=== PATIENT | female | born 2000 | race Two or more races ===

== ENCOUNTER 2023-04-28 19:54 | Emergency (ER) | payer OTHER ==
[2023-04-28] MEDS ORDERED: Prochlorperazine 10 MG/2 ML VIAL ONE (20:26)
[2023-04-28] MEDS ORDERED: Lorazepam 2 MG/ML VIAL ONE (20:39)
[2023-04-28 21:02] LABS: BHCG - Serum Negative (NEGATIVE); Pregs Control Background? CLEAR/WHITE (CLR/WHITE); Pregs Control Bar Appear? YES (CONTROL BAR)
[2023-04-28 21:07] LABS: Acetaminophen Less than 10 mcg/mL (10.0-30.0); Alcohol Less than 10.0 mg/dL (Less than 10); Salicylate Less than 8.0 mg/dL (15.0-30.0)
[2023-04-28 21:16] LABS: ALT (SGPT) 9 U/L (8-55); AST (SGOT) 16 U/L (5-34); Albumin 4.6 g/dL (3.5-5.0); Alkaline Phosphatase 61 U/L (40-110); Anion Gap 19 mmol/L (10-20); BUN (Urea Nitrogen) 12 mg/dL (7.0-18.7); Bilirubin, Total 0.3 mg/dL (0.2-1.2); Calc. Creatinine Clearance 0 mL/min (70-130); Calcium 9.8 mg/dL (7.8-10.44); Carbon Dioxide 17 mmol/L (22-29); Chloride 108 mmol/L (98-107); Estimated GFR 86; Globulin 3.8 g/dL (2.4-3.5); Glucose 94 mg/dL (70-105); Potassium 3.3 mmol/L (3.5-5.1); Protein, Total 8.4 g/dL (6.0-8.3); Sodium 141 mmol/L (136-145)
[2023-04-28 21:22] LABS: Amphetamine Not Detected (NotDetected); Barbiturates Screen Not Detected (NotDetected); Benzodiazepine Screen Not Detected (NotDetected); Cocaine Metabolite Screen Not Detected (NotDetected); Methadone Not Detected (NotDetected); Methamphetamine Not Detected (NotDetected); Opiate Screen Not Detected (NotDetected); Oxycodone Screen Not Detected (NotDetected); Phencyclidine (PCP) Not Detected (NotDetected); THC/Cannabinoid Screen Detected (NotDetected); Tricyclic Screen Not Detected (NotDetected)
[2023-04-28 21:24] LABS: #Basophils 0.1 10x3/uL (0.0-0.2); #Eosinphils 0.1 10x3/uL (0.0-0.5); #Monocytes 0.8 10x3/uL (0.0-1.1); %Basophils 0.4 % (0.0-2.0); %Eosinophils 0.5 % (0.0-6.0); %Lymphocytes 18.5 % (18.0-47.0); %Neutrophils 74.2 % (40.0-75.0); Hematocrit 40.9 % (34.9-44.5); Hemoglobin 13.6 g/dL (12.0-15.5); Mean Corpuscular HGB CONC 33.3 g/dL (32.0-36.0); Mean Corpuscular Hemoglobin 28.9 pg (27.0-33.0); Mean Corpuscular Volume 86.8 fl (81.6-98.3); Mean Platelet Volume 10.7 fl (7.4-10.4); Platelet Count 282 10x3/uL (150-450); RBC Distribution Width 13.2 % (11.5-14.5); Red Blood Cell (RBC) Count 4.71 10x6/uL (3.90-5.03); White Blood Cell (WBC) Count 13.5 10x3/uL (3.5-10.5)
[2023-04-28] MEDS ORDERED: Ziprasidone 20 MG VIAL ONE (23:53)
[2023-04-28] MEDS ORDERED: Sterile Water 10 ML ONE (23:54)
[2023-04-29] MEDS ORDERED: Ziprasidone 20 MG VIAL ONE (00:12)
[2023-04-29] MEDS ORDERED: Sterile Water 10 ML ONE (00:12)
[2023-04-29] MEDS ORDERED: Ondansetron ODT 4 MG TAB ONE (03:05)
== END 2023-04-29 12:20 ==
LOC: CSHERS 19:54
DX: R45.851 Suicidal ideations (principal)
CPT/HCPCS: 36415; 80053; 80306; 80307; 84703; 85025; 96372; 96374; J0780; J2060; J3486; Q0162

== ENCOUNTER 2024-04-17 13:59 | Emergency (ER) | payer OTHER ==
[2024-04-17] MEDS ORDERED: Ketorolac Tromethamine 30 MG (1 mL) VIAL ONE (14:56)
[2024-04-17] MEDS ORDERED: predniSONE 20 MG TAB ONE (15:11)
[2024-04-17 15:38] LABS: Bilirubin Neg (Negative); Blood, Urine 25 (Negative); Glucose, Urine (Dipstick) Normal (Negative); Ketone, Urine 5 mg/dL (Negative); Leukocyte Negative (Negative); Nitrite Negative (Negative); Protein, Urine (Dipstick) 15 mg/dl (Neg-Trace); Specific Gravity, Urine 1.015 (1.005-1.030); Urobilinogen Normal mg/dL (Less than 2)
[2024-04-17 15:55] LABS: Clarity Clear (Clear)
[2024-04-17 15:59] LABS: Bacteria/HPF 1+ HPF (None Seen); CAUTI Indications for Culture Pelvic or flank pain
[2024-04-17 16:00] LABS: Urine Culture Reflex No No
[2024-04-17] MEDS ORDERED: cefTRIAXone (ROCEPHIN) 1 GM VIAL ONE (16:14)
[2024-04-17] MEDS ORDERED: Azithromycin 250 MG TAB ONE (16:14)
[2024-04-18 05:01] LABS: Chlamydia by PCR, Vaginal Swab Not Detected (NotDetected); GC by PCR, Vaginal Swab Not Detected (NotDetected)
== END 2024-04-17 16:00 | disposition home or self-care (01) ==
LOC: CSHERS 13:59
DX: B37.31 Acute candidiasis of vulva and vagina (principal); J02.9 Acute pharyngitis, unspecified; Z11.3 Encounter for screening for infections with a predominantly sexual mode of transmission
CPT/HCPCS: 81001; 87081; 87430; 87480; 87491; 87510; 87591; 87660; 96372; J0696; J1885; J7512

== ENCOUNTER 2024-04-19 11:10 | Emergency (ER) | payer OTHER, SELFPAY | END 2024-04-19 11:55 | disposition home or self-care (01) | LOC: CSHERS 11:10 | DX: B08.4 Enteroviral vesicular stomatitis with exanthem (principal) | CPT/HCPCS: 99283 ==